=== PATIENT | female | born 1940 | race Caucasian/White ===

== ENCOUNTER → 2017-11-29 | Outpatient (CLI) | payer MEDICARE, OTHER ==
[2017-11-29 12:05] LABS: Urine Blood 1+ /uL (Negative); Urine Specific Gravity 1.018 (1.001-1.035)
[2017-11-29 12:07] LABS: Hemoglobin 12.9 g/dL (12.2-16.2); Platelet Count (auto) 179 10^3/uL (140-450)
[2017-11-29 12:18] LABS: Hematocrit 40.6 % (36.0-46.0); Mean Corpuscular Hgb Conc. 31.8 g/dL (32.0-36.0); Mean Corpuscular Volume 88.2 fL (80.0-100.0); Red Cell Distribution Width 15.7 % (11.8-14.3)
[2017-11-29 12:50] LABS: Albumin 3.9 g/dL (3.4-5.0); BUN/Creatinine Ratio 22.8; Bilirubin, Total 1.1 mg/dL (0.2-1.0); Calcium 9.3 mg/dL (8.5-10.1); Potassium 4.2 mmol/L (3.5-5.1); Total Protein 6.8 g/dL (6.4-8.2)
[2017-11-29 14:04] LABS: Free T4 (Free Thyroxine) 1.41 ng/dL (0.89-1.76)
[2017-11-29 14:10] LABS: Band Neutrophils % (manual) 0; Basophils % (manual) 0 (0.0-2.0); Blast Cells 0; Eosinophils % (manual) 0 (0-7); Metamyelocytes % 0; Monocytes % (manual) 0 (0-12); Myelocytes % 0; Promyelocytes % 0; Reactive Lymphocytes 0
[2017-11-29 14:12] LABS: Lymphocytes % (manual) 93 (10.0-50.0)
[2017-11-29 15:01] LABS: White Blood Cell 219.9 10^3/uL (4.4-10.8)
== END | disposition home or self-care (01) ==
LOC: LAB 08:46
PROVIDERS: ATTEND Internal Medicine Cardiovascular Disease
DX: D64.9 Anemia, unspecified (principal); I10 Essential (primary) hypertension; E11.9 Type 2 diabetes mellitus without complications; E03.9 Hypothyroidism, unspecified; E55.9 Vitamin D deficiency, unspecified; D51.9 Vitamin B12 deficiency anemia, unspecified; N39.0 Urinary tract infection, site not specified
CPT/HCPCS: 36415; 80053; 80061; 81003; 82306; 82607; 83036; 84439; 84443; 85007; 85027; 85060

== ENCOUNTER 2018-03-06 17:07 | Inpatient (IN) | payer OTHER ==
[~2018-03-06] VITALS: Ht 167.6 cm; Wt 78.1 kg
[2018-03-06 17:52] LABS: Hematocrit 39.8 % (36.0-46.0)
[2018-03-06 17:55] LABS: Hemoglobin 12.9 g/dL (12.2-16.2); Mean Corpuscular Hemoglobin 29.3 pg (28.0-32.0); Mean Corpuscular Hgb Conc. 32.5 g/dL (32.0-36.0); Mean Corpuscular Volume 90.3 fL (80.0-100.0); Platelet Count (auto) 197 10^3/uL (140-450); Red Blood Cells 4.41 10^6/uL (4.0-5.20); Red Cell Distribution Width 17.1 % (11.8-14.3)
[2018-03-06] MEDS ORDERED: SODIUM CHLORIDE 0.9% 500 ML IV ONE (17:57)
[2018-03-06] MEDS ORDERED: RANI300T3 PO (18:00)
[2018-03-06] MEDS ORDERED: ATEN-60 PO (18:00)
[2018-03-06] MEDS ORDERED: CALCTAB78 PO (18:00)
[2018-03-06] MEDS ORDERED: DIA5T PO (18:00)
[2018-03-06] MEDS ORDERED: FOLI1TAB6 PO (18:00)
[2018-03-06] MEDS ORDERED: LEVO125T7 PO (18:00)
[2018-03-06] MEDS ORDERED: SERT-274 PO (18:00)
[2018-03-06 18:03] LABS: Albumin 3.6 g/dL (3.4-5.0); Anion Gap 8 (5-15); BUN/Creatinine Ratio 24.1; Blood Urea Nitrogen 19 mg/dL (7-18); Calcium 8.7 mg/dL (8.5-10.1); Carbon Dioxide 24 mmol/L (21-32); Chloride 110 mmol/L (98-107); GFR African American 91 mL/min; GFR Non-African American 75 mL/min; Glucose 81 mg/dL (74-106); Potassium 4.7 mmol/L (3.5-5.1); Sodium 142 mmol/L (136-145); White Blood Cell 167.5 10^3/uL (4.4-10.8)
[2018-03-06 18:04] LABS: Band Neutrophils % (manual) 0; Basophils % (manual) 0 (0.0-2.0); Blast Cells 0; Metamyelocytes % 0; Myelocytes % 0; Promyelocytes % 0; Reactive Lymphocytes 0
[2018-03-06 18:09] LABS: Alanine Aminotransferase 25 U/L (13-56); Alkaline Phosphatase 85 U/L (45-117); Aspartate Aminotransferase 31 U/L (15-37); Bilirubin, Total 0.6 mg/dL (0.2-1.0); Total Protein 6.7 g/dL (6.4-8.2)
[2018-03-06] MEDS ORDERED: ALLO300T2 PO (18:39)
[2018-03-06] MEDS ORDERED: LISI-646 PO (18:39)
[2018-03-06 18:48] LABS: Eosinophils % (manual) 2 (0-7); Lymphocytes % (manual) 72 (10.0-50.0); Monocytes % (manual) 20 (0-12)
[2018-03-06] MEDS ORDERED: SODIUM CHLORIDE 0.9% 1,000 ML IV SCH (19:40)
[2018-03-06] MEDS ORDERED: LORazepam 0.5 MG TAB PO PRN (19:45)
[2018-03-06] MEDS ORDERED: LABETALOL HCL 5 MG/ML ML 20ML VIAL IV PRN (19:45)
[2018-03-06] MEDS ORDERED: LACTULOSE 20Gm/30ML SOLN PO PRN (19:45)
[2018-03-06] MEDS ORDERED: hydrALAZINE HCL 20 MG/ML VL IV PRN (19:45)
[2018-03-06] MEDS ORDERED: TEMAZEPAM 15 MG CAP PO PRN (19:45)
[2018-03-06] MEDS ORDERED: MORPHINE SULFATE 8mg/ml INJ SDV IV PRN ×2 (19:45→21:45)
[2018-03-06] MEDS ORDERED: HYDROcodone-ACET 5/325MG TAB PO PRN (19:45)
[2018-03-06] MEDS ORDERED: ACETAMINOPHEN 500 MG TAB PO PRN (19:45)
[2018-03-06] MEDS ORDERED: PROMETHAZINE HCL 25 MG/ML 1ML IV PRN (19:45)
[2018-03-06] MEDS ORDERED: LISI10TA6 PO (19:55)
[2018-03-06] MEDS: ATENOLOL 25 MG TAB PO ONE ×2 (19:58→20:09)
[2018-03-06] MEDS ORDERED: SODIUM CHLORIDE 0.9% 1,000 ML IV ONE (20:00)
[2018-03-06] MEDS ORDERED: ASPirin 81 mg TAB PO ONE (20:00)
[2018-03-06] MEDS ORDERED: ENOXAPARIN SOD 40 MG/0.4 ML SYRINGE SC SCH (20:00)
[2018-03-06] MEDS: SODIUM CHLORIDE 0.9% 1,000 ML IV SCH (20:00)
[2018-03-06] MEDS: LISINOPRIL 10 MG TAB PO ONE ×2 (20:00→20:10)
[2018-03-06] MEDS ORDERED: LORazepam 2MG/ML-1ML VIAL IV PRN (20:30)
[2018-03-06 20:36] LABS: CRP High Sensitivity 0.25 mg/dL (< 0.3)
[2018-03-06 20:44] LABS: Folate (Folic Acid) > 24.00 ng/mL (5.38-24)
[2018-03-06] MEDS ORDERED: NITROGLYCERIN 0.4 MG SL TAB SL PRN (21:45)
[2018-03-06] MEDS ORDERED: LISINOPRIL 20 MG TAB PO SCH (22:00)
[2018-03-06] MEDS ORDERED: FAMOTIDINE 20 MG TAB PO SCH (22:00)
[2018-03-06] MEDS ORDERED: DIAZEPAM 5 MG TAB PO SCH (22:00)
[2018-03-06] MEDS: LISINOPRIL 10 MG TAB PO SCH (22:00)
[2018-03-06] MEDS ORDERED: DIAZEPAM 5 MG TAB PO ONE (22:00)
[2018-03-06] MEDS ORDERED: ATORVASTATIN 20 MG TAB PO SCH (22:00)
[2018-03-06] MEDS: FAMOTIDINE 20 MG TAB PO SCH (22:23)
[2018-03-06 22:30] VITALS: BP 169/70
[2018-03-06 23:00] VITALS: BP 169/70
[2018-03-07 05:00] VITALS: BP 136/70
[2018-03-07 06:49] LABS: Urine Bacteria FEW /hpf (None Seen); Urine Blood 1+ /uL (Negative); Urine WBC 3 /hpf (0 - 5)
[2018-03-07] MEDS ORDERED: LEVOTHYROXINE SODIUM 50 MCG TAB PO SCH ×2 (07:00)
[2018-03-07 08:00] VITALS: BP 162/73
[2018-03-07] MEDS ORDERED: ASPirin 81 mg TAB PO SCH (10:00)
[2018-03-07] MEDS ORDERED: LISINOPRIL 10 MG TAB PO ONE (10:00)
[2018-03-07] MEDS ORDERED: ATENOLOL 25 MG TAB PO SCH (10:00)
[2018-03-07] MEDS ORDERED: SERTRALINE HCL 50 MG TAB PO SCH ×2 (10:00)
[2018-03-07] MEDS ORDERED: LISINOPRIL 20 MG TAB PO SCH (10:00)
[2018-03-07] MEDS ORDERED: FOLIC ACID 1 MG TAB PO SCH ×2 (10:00)
[2018-03-07] MEDS ORDERED: ALLOPURINOL 300 MG TAB PO SCH ×2 (10:00)
[2018-03-07] MEDS: FAMOTIDINE 20 MG TAB PO SCH (10:11)
[2018-03-07] MEDS: LISINOPRIL 10 MG TAB PO SCH (10:12)
[2018-03-07 12:00] VITALS: BP 150/72
[2018-03-07] MEDS ORDERED: POM PO (12:51)
[2018-03-07 16:00] VITALS: BP 154/65
[2018-03-07] MEDS: SODIUM CHLORIDE 0.9% 1,000 ML IV SCH (16:57)
[2018-03-07 18:42] VITALS: BP 154/65
== END 2018-03-07 17:38 | disposition home or self-care (01) | DRG 69 ==
LOC: ER 17:10 → TELE 17:11 → TELE-WESTW 22:36
PROVIDERS: ADMIT Emergency Medicine; ATTEND Internal Medicine Cardiovascular Disease
DX: G45.9 Transient cerebral ischemic attack, unspecified (principal); C91.10 Chronic lymphocytic leukemia of B-cell type not having achieved remission; I16.0 Hypertensive urgency; E78.5 Hyperlipidemia, unspecified; E03.9 Hypothyroidism, unspecified; F32.9 Major depressive disorder, single episode, unspecified; I10 Essential (primary) hypertension; I25.10 Atherosclerotic heart disease of native coronary artery without angina pectoris; I49.5 Sick sinus syndrome; I95.1 Orthostatic hypotension; M79.7 Fibromyalgia; Z85.72 Personal history of non-Hodgkin lymphomas; Z90.49 Acquired absence of other specified parts of digestive tract; Z90.710 Acquired absence of both cervix and uterus; Z88.1 Allergy status to other antibiotic agents; Z88.8 Allergy status to other drugs, medicaments and biological substances
CPT/HCPCS: 36415; 70450; 71045; 80053; 81001; 82550; 82607; 82746; 83735; 83880; 84443; 84484; 85007; 85027; 85379; 85652; 86141; 93005; 93886; 96361; 96374

== ENCOUNTER → 2018-03-06 | Outpatient (CLI) | payer OTHER ==
[~2018-03-06] MED LIST: ALLO300T2 PO; ATEN-60 PO; CALCTAB78 PO; DIA5T PO; FOLI1TAB6 PO; LEVO125T7 PO; LISI-646 PO; LISI10TA6 PO; POM PO; RANI300T3 PO; SERT-274 PO
[2018-03-06 12:48] LABS: Albumin 3.7 g/dL (3.4-5.0); BUN/Creatinine Ratio 25.9; Bilirubin, Total 0.6 mg/dL (0.2-1.0); Calcium 8.9 mg/dL (8.5-10.1); Potassium 4.2 mmol/L (3.5-5.1); Total Protein 6.7 g/dL (6.4-8.2); Uric Acid 4.3 mg/dL (2.6-6.0)
== END | disposition home or self-care (01) ==
LOC: LAB 10:17
PROVIDERS: ATTEND Internal Medicine
DX: M10.9 Gout, unspecified (principal); I10 Essential (primary) hypertension; E11.9 Type 2 diabetes mellitus without complications; E03.9 Hypothyroidism, unspecified
CPT/HCPCS: 36415; 80053; 84550

== ENCOUNTER → 2018-05-26 | Outpatient (CLI) | payer OTHER ==
[~2018-05-26] MED LIST changes: -CALCTAB78 PO; -FOLI1TAB6 PO; -LISI10TA6 PO
== END | disposition home or self-care (01) ==
LOC: Rad HDHVI 11:33
PROVIDERS: ATTEND Internal Medicine
DX: I11.9 Hypertensive heart disease without heart failure (principal); I70.0 Atherosclerosis of aorta; J40 Bronchitis, not specified as acute or chronic; R21 Rash and other nonspecific skin eruption; R05 Cough
CPT/HCPCS: 71046

== ENCOUNTER → 2018-06-09 | Outpatient (CLI) | payer OTHER | END | disposition home or self-care (01) | LOC: Rad HDHVI 10:51 | PROVIDERS: ATTEND Internal Medicine | DX: I08.8 Other rheumatic multiple valve diseases (principal); I10 Essential (primary) hypertension | CPT/HCPCS: 93306 ==

== ENCOUNTER → 2018-06-26 | Outpatient (CLI) | payer OTHER | END | disposition home or self-care (01) | LOC: LAB 11:19 | PROVIDERS: ATTEND Internal Medicine | DX: M32.9 Systemic lupus erythematosus, unspecified (principal); R79.82 Elevated C-reactive protein (CRP); R70.0 Elevated erythrocyte sedimentation rate; R76.9 Abnormal immunological finding in serum, unspecified; F32.9 Major depressive disorder, single episode, unspecified | CPT/HCPCS: 36415; 85652; 86038; 86141; 86225 ==

== ENCOUNTER → 2019-04-22 | Outpatient (CLI) | payer OTHER | END | disposition home or self-care (01) | LOC: Rad HDHVI 15:05 | PROVIDERS: ATTEND Internal Medicine | DX: M79.89 Other specified soft tissue disorders (principal) | CPT/HCPCS: 93971 ==

== ENCOUNTER → 2020-03-16 | Outpatient (CLI) | payer OTHER ==
[2020-03-16 12:27] LABS: Hematocrit 44.6 % (36.0-46.0); Hemoglobin 14.3 g/dL (12.2-16.2); Mean Corpuscular Hemoglobin 30.2 pg (28.0-32.0); Mean Corpuscular Hgb Conc. 32.2 g/dL (32.0-36.0); Platelet Count (auto) 178 10^3/uL (140-450); Red Blood Cells 4.74 10^6/uL (4.0-5.20); Red Cell Distribution Width 16.9 % (11.8-14.3); White Blood Cell 23.3 10^3/uL (4.4-10.8)
[2020-03-16 12:32] LABS: Urine Blood TRACE /uL (Negative); Urine Specific Gravity 1.022 (1.001-1.035)
[2020-03-16 12:34] LABS: Band Neutrophils % (manual) 0; Basophils % (manual) 0 (0.0-2.0); Blast Cells 0; Eosinophils % (manual) 0 (0-7); Metamyelocytes % 0; Myelocytes % 0; Promyelocytes % 0
[2020-03-16 12:52] LABS: Free T4 (Free Thyroxine) 1.34 ng/dL (0.89-1.76)
[2020-03-16 12:56] LABS: Potassium 4.6 mmol/L (3.5-5.1)
[2020-03-16 13:13] LABS: Albumin 3.7 g/dL (3.4-5.0); BUN/Creatinine Ratio 27.9; Bilirubin, Total 0.9 mg/dL (0.2-1.0); Calcium 8.7 mg/dL (8.5-10.1); Total Protein 6.5 g/dL (6.4-8.2)
[2020-03-16 14:11] LABS: Lymphocytes % (manual) 70 (10.0-50.0); Monocytes % (manual) 3 (0-12); Reactive Lymphocytes 1
== END | disposition home or self-care (01) ==
LOC: LAB 09:58
PROVIDERS: ATTEND Internal Medicine
DX: E03.9 Hypothyroidism, unspecified (principal); K90.9 Intestinal malabsorption, unspecified; N39.0 Urinary tract infection, site not specified; D51.9 Vitamin B12 deficiency anemia, unspecified; Z79.899 Other long term (current) drug therapy; Z00.00 Encounter for general adult medical examination without abnormal findings
CPT/HCPCS: 36415; 80053; 80061; 81003; 82306; 82607; 83036; 84439; 84443; 85007; 85027

== ENCOUNTER → 2020-05-06 | Outpatient (CLI) | payer OTHER | END | disposition home or self-care (01) | LOC: Rad HDHVI 15:39 | PROVIDERS: ATTEND Internal Medicine | DX: I08.8 Other rheumatic multiple valve diseases (principal); I10 Essential (primary) hypertension; R00.2 Palpitations | CPT/HCPCS: 93306 ==

== ENCOUNTER → 2021-08-30 | Outpatient (CLI) | payer OTHER ==
[~2021-08-30] MED LIST changes: -LISI-646 PO; +LISI20TA28 PO; -SERT-274 PO; +SERT50TA19 PO
[2021-08-30 15:16] LABS: Urine Blood 1+ /uL (Negative); Urine Specific Gravity 1.015 (1.001-1.035)
== END | disposition home or self-care (01) ==
LOC: LAB 12:39
PROVIDERS: ATTEND Internal Medicine
DX: N39.0 Urinary tract infection, site not specified (principal)
CPT/HCPCS: 81003; 87086; 87088; 87186